=== PATIENT | female | born 2000 | race Caucasian/White ===

== ENCOUNTER 2021-06-28 19:05 | Emergency (ER) | payer SELFPAY ==
[~2021-06-28] VITALS: Ht 175.3 cm; Wt 147.0 kg
--- NOTE | 2021-06-28 20:13 | ED General ---
General Stated Complaint: RASH ALL OVER Source of Information: Patient Exam Limitations: No Limitations (TRINA MCNEIL) History of Present Illness Date Seen by Provider: Jun 28, 2021 Time Seen by Provider: 20:11 Initial Comments Patient who 20-year-old female presents ED with a diffuse red itchy rash. Rash started 24 hours ago. Known history of allergies to some nuts. Patient denies eating any nuts. Patient states the rash appears to be worsening. She reports di ffuse red elevated rash. She took Benadryl yesterday and this morning without much improvement. Denies any difficulty breathing, sore throat, headache, dizziness, fever, chills, chest pain, shortness of breath. (TRINA MCNEIL) Allergies and Home Medications Allergies Coded Allergies: No Known Drug Allergies (Unverified , 06/28/21) Patient Home Medication List Home Medication List Reviewed: Yes (TRINA MCNEIL) Prednisone (Prednisone) 10 Mg Tab.ds.pk, 10 MG PO DAILY Prescribed by: JARETH WHALEN on 06/28/212113 Review of Systems Review of Systems Constitutional: No chills, No diaphoresis EENTM: No no symptoms reported, No ear discharge, No hearing loss, No ear pain Respiratory: No cough, No dyspnea on exertion, No orthopnea Cardiovascular: No chest pain, No edema Gastrointestinal: see HPI; No abdominal pain, No constipation, No diarrhea, No dysphagia Genitourinary: No discharge, No dysuria Musculoskeletal: see HPI; No back pain, No gout, No joint pain Skin: pruritus, rash Psychiatric/Neurological: See HPI, Anxiety (TRINA MCNEIL) Physical Exam Vital Signs Vital Signs - First Documented 06/28/21 19:56 Temp 36.7 Pulse 122 Resp 20 B/P (MAP) 182/107 (132) Pulse Ox 97 O2 Delivery Room Air (BRIAN,GEMA K DO) Vital Signs Capillary Refill : (TRINA MCNEIL) Height, Weight, BMI Height: '" Weight: lbs. oz. kg; BMI Method: General Appearance: No Apparent Distress, WD/WN HEENT: PERRL/EOMI, TMs Normal, Normal ENT Inspection, Pharynx Normal Neck: Full Range of Motion, Non Tender, Supple Respiratory: Chest Non Tender, Lungs Clear, Normal Breath Sounds, No Accessory Muscle Use, No Respiratory Distress Cardiovascular: Regular Rate, Rhythm, No Edema, No Gallop, No JVD Gastrointestinal: Normal Bowel Sounds, No Organomegaly, No Pulsatile Mass Skin: Other (Diffuse erythematous edematous papular macular rash. Blanchable. no pustules, vesicles) (TRINA MCNEIL) Progress/Results/Core Measures Suspected Sepsis SIRS Temperature: Pulse: Respiratory Rate: Blood Pressure / Mean: (TRINA MCNEIL) Results/Orders Medications Given in ED Current Medications Medications Dose Ordered Sig/Joseph Route Start Time Stop Time Status Last Admin Dose Admin Diphenhydramine HCl 25 mg ONCE ONCE PO 06/28/21 20:15 06/28/21 20:21 DC 06/28/21 20:25 25 MG Famotidine 40 mg ONCE ONCE PO 06/28/21 20:15 06/28/21 20:21 DC 06/28/21 20:25 40 MG Methylprednisolone Sodium Succinate 80 mg ONCE ONCE IM 06/28/21 20:15 06/28/21 20:21 DC 06/28/21 20:25 80 MG (GEMA TORRES DO) Vital Signs/I&O 06/28/21 06/28/21 19:56 21:38 Temp 36.7 36.7 Pulse 122 99 Resp 20 20 B/P (MAP) 182/107 (132) 169/125 Pulse Ox 97 98 O2 Delivery Room Air Room Air (FAUSTINO TORRESA K DO) Vital Signs/I&O Capillary Refill : (TRINA MCNEIL) Departure Communication (Admissions) Patient with diffuse erythematous edematous rash. Concerning for allergic reaction. Patient cannot recall if she change any type of soaps, detergents, became in contact with any foreign substance. Blanchable rash. Afebrile. No difficulty swallowing, chest pain, shortness of breath. Patient was given dose of Solu-Medrol, Benadryl, Pepcid. Patient appears much better at this time. She states symptoms appear to be improving. Slight improvement the rash. Patient requires to be discharged at this time. Will discharge with taper steroid prednisone. Recommend continue Benadryl at home. If any worsening symptoms strongly recommend return back to ED for further evaluation. (TRINA MCNEIL) Impression Primary Impression: Allergic reaction Disposition: 01 HOME, SELF-CARE Condition: Improved Departure-Patient Inst. Decision time for Depature: 21:10 (TRINA MCNEIL) Referrals: NO,LOCAL PHYSICIAN (PCP) Primary Care Physician Patient Instructions: Allergic Reaction ED Scripts Prednisone (Prednisone) 10 Mg Tab.ds.pk 10 MG PO DAILY, #42 EA Take 6 tabs(60mg)daily,decrease by 1 tab(10mg)every other day. Prov: TRINA MCNEIL 06/28/21 Work/School Note: Family Work Note, Work Release Form Date Seen in the Emergency Department: Jun 28, 2021 Return to Work: Jun 30, 2021 Restrictions: No Restrictions ATTENDING PHYSICIAN NOTE: I WAS PHYSICALLY PRESENT ER PHYSICIAN WHEN THIS PATIENT WAS IN ER, BUT I WAS NOT INVOLVED IN ANY DECISION MAKING OR ANY CARE OF THIS PATIENT. (GEMA TORRES DO) TRINA MCNEIL Jun 28, 2021 20:13 GEMA TORRES DO Jun 29, 2021 05:44
[2021-06-28] MEDS ORDERED: methylPREDNISolone 40 MG/ML (Solu-MEDROL) VIAL IM ONE (20:15)
[2021-06-28] MEDS ORDERED: FAMOTIDINE 20 MG (PEPCID) TABLET PO ONE (20:15)
[2021-06-28] MEDS ORDERED: diphenhydrAMINE 25 MG TAB (BENADRYL) PO ONE (20:15)
[2021-06-28] MEDS ORDERED: PRED10TA22 PO (21:14)
[2021-06-28 21:38] VITALS: BP 169/125
== END 2021-06-28 21:38 | disposition home or self-care (01) ==
LOC: ER 19:07
DX: T78.1XXA Other adverse food reactions, not elsewhere classified, initial encounter (principal)
CPT/HCPCS: 99284